=== PATIENT | male | born 1985 | race Two or more races ===

== ENCOUNTER 2017-03-24 11:18 | Emergency (ER) | payer OTHER ==
[~2017-03-24] VITALS: Ht 165.1 cm; Wt 107.4 kg
[2017-03-24 11:27] VITALS: BP 142/95
== END 2017-03-24 12:04 | disposition home or self-care (01) ==
LOC: ED 11:55
DX: M25.512 Pain in left shoulder (principal); M54.12 Radiculopathy, cervical region; I10 Essential (primary) hypertension; G89.29 Other chronic pain
CPT/HCPCS: 99283